=== PATIENT | male | born 1930 | race Caucasian/White ===

== ENCOUNTER 2016-11-22 10:23 | Emergency (ER) | payer MEDICARE, OTHER ==
[2016-11-22 10:27] VITALS: BP 142/52; PULSE 86; TEMP 92
[2016-11-22] MEDS ORDERED: SUCCINYLCHOLINE CHLORIDE 200 MG/10 ML VIAL ONE (10:27)
[2016-11-22] MEDS ORDERED: ETOMIDATE 20 MG/10 ML VIAL ONE (10:27)
[2016-11-22 10:31] VITALS: O2SAT 92
[2016-11-22 10:36] VITALS: BP 63/39; PULSE 84
[2016-11-22 10:40] VITALS: BP 57/36; PULSE 80
[2016-11-22 10:42] VITALS: BP 57/37; PULSE 99; RESP 16; TEMP 92; O2SAT 92
[2016-11-22] MEDS ORDERED: NOREPINEPHRINE 4 MG/4 ML AMP ONE (10:44)
[2016-11-22] MEDS ORDERED: ETOMIDATE 20 MG/10 ML VIAL IV PUSH ONE (10:45)
[2016-11-22] MEDS ORDERED: SUCCINYLCHOLINE CHLORIDE 200 MG/10 ML VIAL IV PUSH ONE (10:45)
[2016-11-22] MEDS ORDERED: NOREPINEPHRINE 4 MG/4 ML AMP IV ONE (11:51)
--- NOTE | 2016-11-22 12:11 | PD ---
HPI Chief Complaint: Code Blue Time Seen by Provider: 10:43 Travel History International Travel<30 days: No Contact w/Intl Traveler<30days: No Traveled to known affect area: No History of Present Illness HPI 86-year-old man, brought in from a nursing facility in cardiac arrest. Patient had an approximate 20 minute down time prior to EMS arrival, and another 30-40 minutes of downtime with EMS. He received ACLS. Extraocular chronic airway was placed. He was given multiple rounds of epinephrine. They noted persistent asystolic rhythm with occasional agonal complexes, but no organized electrical activity. History Past Medical History Medical History: Unable to Obtain Social History Tobacco Use: No Allergies-Medications (Allergen,Severity, Reaction): Coded Allergies: UNOBTAINABLE (Unverified , 11/22/16) Review of Systems ROS Limitations: Unresponsive Physical Exam Narrative GENERAL: Obtunded 86-year-old man, in cardiac arrest. SKIN: Cool and clammy. HEAD: Atraumatic. Normocephalic. EYES: Pupils equal and round. No scleral icterus. No injection or drainage. ENT: No nasal bleeding or discharge. Mucous membranes pink and moist. NECK: Trachea midline. No JVD. CARDIOVASCULAR: Initially CPR in progress. Then with bradycardic slow rhythm. No definite murmurs. RESPIRATORY: Coarse breath sounds throughout the posterior lung pandey. GASTROINTESTINAL: Abdomen scaphoid and soft. MUSCULOSKELETAL: No obvious deformities. Crepitus in the chest wall. NEUROLOGICAL: Obtunded. No response to painful stimuli. Data Data Last Documented VS Vital Signs Date Time Temp Pulse Resp B/P Pulse Ox O2 Delivery O2 Flow Rate FiO2 11/22/16 10:42 92.0 99 16 57/37 92 Ventilator 11/22/16 10:31 100 Orders Succinylcholine Inj (Quelicin Inj) (11/22/16 10:27) Etomidate Inj (Amidate Inj) (11/22/16 10:27) Norepinephrine Inj (Levophed Inj) (11/22/16 10:44) Etomidate Inj (Amidate Inj) (11/22/16 10:45) Succinylcholine Inj (Quelicin Inj) (11/22/16 10:45) Electrocardiogram (11/22/16 ) MDM Medical Decision Making Medical Screen Exam Complete: Yes Emergency Medical Condition: Yes Differential Diagnosis Cardiac arrest, arrhythmia, overdose, hypoxic arrest, other Narrative Course Patient presented in cardiac arrest, CPR ongoing, with a Combitube in place. He had a 50 minute downtime with asystolic arrest. Etiology unclear. There is some concern for opiate overdose he received a 5 mg Lortab pill prior to his arrest. He was given Narcan without much improvement. On our initial pulse and rhythm check, he had return of spontaneous circulation. Patient was then intubated. Patient's blood pressure rapidly waned. He is given 20 g then 30 g of epinephrine with improvement. The patient's niece, and power of internal control analyst, as indicated on PIP or from the intermediate then called. She states patient elevated will would not want to be kept alive artificially. I explained the situation of his prolonged down time, 10 minutes of no full-time prior to by standard CPR in the nursing facility, and hemodynamic instability now, and very poor prognosis. After discussion, and keeping with his wishes, patient was allowed to pass naturally in the emergency department. Time of was 1112. Diagnosis Primary Impression: Cardiac arrest Ronal Swanson MD Nov 22, 2016 12:11
--- NOTE | 2016-11-23 17:07 | EKG ---
Date Performed: 11/22/2016 Time Performed: 10:31:29 PTAGE: 86 years EKG: ATRIAL FIBRILLATION WITH SLOW VENTRICULAR RESPONSE WITH ABERRANT CONDUCTION OR VENTRICULAR PREMATURE COMPLEXES INDETERMINATE AXIS RIGHT BUNDLE BRANCH BLOCK MARKED ST DEPRESSION, CONSIDER SUBE NDOCARDIAL INJURY ABNORMAL ECG NO PREVIOUS TRACING DOCTOR: Bob Lloyd Interpretating Date/Time 11/23/2016 17:02:48
== END 2016-11-22 16:07 | disposition expired ==
LOC: NEPA 10:23
DX: I46.9 Cardiac arrest, cause unspecified (principal)
CPT/HCPCS: 92950; 93005; 99285; J0330